=== PATIENT | female | born 1985 | race American Indian/Alaskan Native ===

== ENCOUNTER 2017-03-21 22:47 | Emergency (ER) | payer MEDICAID ==
[2017-03-21 23:00] VITALS: BMI 37.5
[2017-03-22] MEDS ORDERED: cefTRIAXone (Rocephin) 250 mg Inj IM STA (00:15)
--- NOTE | 2017-03-22 00:21 | ED PDOC ---
Arrival/HPI - General Chief Complaint: Female Genitourinary Time Seen by Provider: 03/21/17 23:22 Historian: Patient - History of Present Illness Narrative History of Present Illness (Text): 03/22/17 01:18 31yr old female presents today with vaginal discharge and vaginal irritation that started today. no fever/chills. pt states she is sexually active with one person. no abdominal pain. denies . pt c/o burning with urination and after she wipes. denies vomiting/diarrhea. denies urinary frequency. denies vaginal lesions. pt states she noticed a thick white/yellow discharge today. no other complaints. Time/Duration: Other (1 day) Symptom Onset: Gradual Symptom Course: Unchanged Quality: Burning Severity Level: 2 Past Medical History - Provider Review Nursing Documentation Reviewed: Yes - Travel History Have you recently traveled outside [place] w/in the past 3 mons?: No - Infectious Disease Hx of Infectious Diseases: None - Tetanus Immunization Tetanus Immunization: Up to Date - Gastrointestinal Other/Comment: Cholelithiasis - Psychiatric Hx Substance Use: Yes - Surgical History Other/Comment: gallstone removal - Anesthesia Hx Anesthesia: Yes Hx Anesthesia Reactions: No Hx Malignant Hyperthermia: No Family/Social History - Physician Review Nursing Documentation Reviewed: Yes Family/Social History: Unknown Family HX Smoking Status: Heavy Smoker > 10 Cigarettes Daily Hx Alcohol Use: Yes Frequency of alcohol use: Few days per week Hx Substance Use: Yes Substance used: PCPLinda greene 03/20/2017 Allergies/Home Meds Allergies/Adverse Reactions: Allergies No Known Allergies Allergy (Verified 03/21/17 23:00) Review of Systems - Review of Systems Constitutional: absent: Fatigue, Fevers Respiratory: absent: SOB, Cough Cardiovascular: absent: Chest Pain, Palpitations Gastrointestinal: absent: Abdominal Pain, Nausea, Vomiting Genitourinary Female: Dysuria, Vaginal Discharge. absent: Frequency, Hematuria , Vaginal Bleeding Musculoskeletal: absent: Arthralgias, Back Pain, Neck Pain Skin: Pruritis. absent: Rash Neurological: absent: Headache, Dizziness Psychiatric: absent: Anxiety, Depression Physical Exam Vital Signs Reviewed: Yes Temperature: Afebrile Blood Pressure: Normal Pulse: Regular Respiratory Rate: Normal Appearance: Positive for: Well-Appearing, Non-Toxic, Comfortable Pain Distress: None Mental Status: Positive for: Alert and Oriented X 3 - Systems Exam Head: Present: Atraumatic Mouth: Present: Moist Mucous Membranes Respiratory/Chest: Present: Clear to Auscultation Cardiovascular: Present: Regular Rate and Rhythm Genitourinary/Pelvic Exam: Present: Vaginal Discharge, Other (chaparoned by [facility] P[facility]. ). No: Vaginal Bleeding, Vaginal Lesions, Adenexal Tenderness, Adenexal Mass, Odor Back: Present: Normal Inspection Skin: Present: Warm, Dry Psychiatric: Present: Alert, Oriented x 3 Medical Decision Making ED Course and Treatment: 03/22/17 01:22 31yr old female with vaginal discharge and irritation x 1 day. gc/Chlamydia pending Urinalysis: Trace blood HCG negative Patient wants to be treated for possible STD. Rocephin and Zithromax given We will discharge the patient home with Diflucan 150 mg pt non toxic well appearing; no distress. stable vitals. Patient was advised to follow-up with the retail marketing specialist within the next 2 days. She was advised to follow up regardinggonorrhea and chlamydia cultures. Patient verbalizes understanding of discharge instructions and need for immediate followup. all aspects of this case were discussed the attending of record. impression; vaginal discharge diflucan; 1 tablet ONCe follow up with the primary care physician within the next 2 days Follow up with the DOPE [facility] within the next 2 days return if symptoms worsen,persist or if new symptoms develop. - Lab Interpretations Lab Results: Lab Results 03/22/17 00:14: Urine Color Yellow, Urine Appearance Clear, Urine pH 7.0, Ur Specific [place] 1.025, Urine Protein Negative, Urine Glucose (UA) Negative, Urine Ketones Negative, Urine Blood Trace-lysed H, Urine Nitrate Negative, Urine Bilirubin Negative, Urine Urobilinogen 0.2, Ur Leukocyte Esterase Negative , Urine RBC 1 - 3, Urine WBC 1 - 3, Ur Epithelial Cells 0 - 2, Urine Bacteria Rare - Medication Orders Current Medication Orders: Discontinued Medications Azithromycin (Zithromax) 1,000 mg PO STAT STA PRN Reason: Protocol Stop: 03/22/17 00:16 Last Admin: 03/22/17 00:22 Dose: 1,000 MG Ceftriaxone Sodium (Rocephin) 250 mg IM STAT STA PRN Reason: Protocol Stop: 03/22/17 00:16 Last Admin: 03/22/17 00:22 Dose: 250 MG IM Administration Charges Document 03/22/17 00:22 EKEOO (Rec: 03/22/17 00:22 EKEOO [id number]) Injection Site MAR Injection Site Left Deltoid Charges for Administration # of IM Administrations 1 Lidocaine HCl (Lidocaine 1% (20ml)) Confirm Administered Dose 20 ml .ROUTE .STK- MED ONE Stop: 03/22/17 00:30 Disposition/Present on Arrival - Present on Arrival Any Indicators Present on Arrival: No History of DVT/PE: No History of Uncontrolled Diabetes: No Urinary Catheter: No History of Decub. Ulcer: No History Surgical Site Infection Following: None - Disposition Have Diagnosis and Disposition been Completed?: Yes Diagnosis: Vaginal discharge Disposition: HOME/ ROUTINE Disposition Time: 00:18 Patient Plan: Discharge Patient Problems: Current Active Problems Problem Status Diagnosed Vaginal discharge Acute Condition: GOOD Discharge Instructions (ExitCare): Vaginal Discharge (ED) Additional Instructions: diflucan; 1 tablet ONCe follow up with the primary care physician within the next 2 days Follow up with the DOPE SPR[facility]ER within the next 2 days return if symptoms worsen,persist or if new symptoms develop. Prescriptions: Fluconazole [Diflucan] 150 mg PO ONCE #1 tab Referrals: Kamilah Walsh MD [Staff Provider] - Follow up with primary [facility] [place] [Outside] - Follow up with [facility] [Outside] - Follow up with primary Forms: WORK NOTE
[2017-03-22 00:24] LABS: URINE BILIRUBIN NEGATIVE (NEGATIVE); URINE BLOOD TRACE-LYSED (NEGATIVE); URINE GLUCOSE (UA) NEGATIVE (NEGATIVE); URINE KETONE NEGATIVE (NEGATIVE); URINE LEUKOCYTE ESTERASE NEGATIVE Leu/uL (NEGATIVE); URINE PROTEIN NEGATIVE mg/dL (<30 mg/dL); URINE UROBILINOGEN 0.2 E.U./dL (<1 E.U./dL)
[2017-03-22] MEDS ORDERED: Lidocaine 1% Inj (20ml) ONE (00:29)
[2017-03-22 00:33] LABS: URINE APPEARANCE CLEAR (CLEAR)
[2017-03-22 00:34] LABS: URINE COLOR YELLOW (YELLOW)
[2017-03-22 00:37] LABS: URINE BACTERIA RARE (NEG); URINE EPITHELIAL CELLS 0 - 2 /hpf (0-5)
[2017-03-22 01:31] VITALS: RESP 18; TEMP 98.6; O2SAT 98
[2017-03-22 01:32] VITALS: BP 110/78; PULSE 78
== END 2017-03-22 02:16 | disposition home or self-care (01) ==
LOC: ED 22:47 → MERGE 22:47 → ED 03-22 02:16
DX: N89.8 Other specified noninflammatory disorders of vagina (principal)
CPT/HCPCS: 81001; 87491; 87591; 96372; 99283; J0696

== ENCOUNTER 2017-03-22 10:08 | Emergency (ER) | payer MEDICAID ==
[2017-03-22 10:08] VITALS: BMI 37.5
[2017-03-22 10:14] VITALS: TEMP 98.4
[2017-03-22] MEDS ORDERED: Sodium Chloride 0.9% 1,000 ML IV STA (10:29)
--- NOTE | 2017-03-22 10:30 | ED PDOC ---
Arrival/HPI - General Historian: Patient - General Chief Complaint: Abdominal Pain Time Seen by Provider: 03/22/17 10:23 - History of Present Illness Narrative History of Present Illness (Text): 03/22/17 10:28 31yo female present in ED for complaint of vaginal pain and greenish vaginal discharge. Patient was seen here last night and treated for same complaint. States she is still having vaginal pain. Also reports 3episodes of diarrhea since last night. She denies abdominal pain, urinary symptoms, nausea, vomiting , constipation, fever, chills, any other complaint. 0 (Ozzie,Happiness A) Past Medical History - Infectious Disease Hx of Infectious Diseases: None - Tetanus Immunization Tetanus Immunization: Up to Date - Cardiac Hx Cardiac Disorders: No - Pulmonary Hx Respiratory Disorders: No - Neurological Hx Neurological Disorder: No - HEENT Hx HEENT Disorder: No - Renal Hx Renal Disorder: No - Endocrine/Metabolic Hx Endocrine Disorders: No - Hematological/Oncological Hx Blood Disorders: No - Integumentary Hx Dermatological Disorder: No - Musculoskeletal/Rheumatological Hx Musculoskeletal Disorders: No - Gastrointestinal Hx Gastrointestinal Disorders: Yes Other/Comment: Cholelithiasis - Genitourinary/Gynecological Hx Genitourinary Disorders: No - Psychiatric Hx Psychophysiologic Disorder: No Hx Substance Use: Yes - Surgical History Other/Comment: gallstone removal - Anesthesia Hx Anesthesia: Yes Hx Anesthesia Reactions: No Hx Malignant Hyperthermia: No Family/Social History - Physician Review Nursing Documentation Reviewed: Yes Family/Social History: Unknown Family HX Smoking Status: Heavy Smoker > 10 Cigarettes Daily Hx Alcohol Use: Yes Hx Substance Use: Yes Substance used: PCP- Allergies/Home Meds Allergies/Adverse Reactions: Allergies Penicillins Allergy (Verified 03/22/17 10:11) ANAPHYLAXIS Home Medications: Home Meds Medication Instructions Recorded Confirmed No Known Home Med 03/22/17 03/22/17 Review of Systems - Physician Review All systems were reviewed & negative as marked: Yes - Review of Systems Constitutional: Normal Eyes: Normal ENT: Normal Respiratory: Normal Cardiovascular: Normal Gastrointestinal: Diarrhea. absent: Abdominal Pain, Constipation, Nausea, Vomiting, Hematochezia, Hematemesis, Anorexia Genitourinary Female: Other (Vaginal pain) Musculoskeletal: Normal Skin: Normal Neurological: Normal Endocrine: Normal Hemo/Lymphatic: Normal Psychiatric: Normal Physical Exam Vital Signs Reviewed: Yes Temperature: Afebrile Blood Pressure: Normal Pulse: Regular Respiratory Rate: Normal Appearance: Positive for: Well-Appearing, Non-Toxic, Comfortable Pain Distress: None Mental Status: Positive for: Alert and Oriented X 3 - Systems Exam Head: Present: Atraumatic, Normocephalic Pupils: Present: PERRL Extroacular Muscles: Present: EOMI Conjunctiva: Present: Normal Mouth: Present: Moist Mucous Membranes Neck: Present: Normal Range of Motion Respiratory/Chest: Present: Clear to Auscultation, Good Air Exchange. No: Respiratory Distress, Accessory Muscle Use Cardiovascular: Present: Regular Rate and Rhythm, Normal S1, S2. No: Murmurs Abdomen: Present: Normal Bowel Sounds, Other (Soft). No: Tenderness, Distention , Peritoneal Signs, Rebound, Guarding, McBurney's Point Tender, Rovsing's Sign Present Back: Present: Normal Inspection Upper Extremity: Present: Normal Inspection. No: Cyanosis, Edema Lower Extremity: Present: Normal Inspection. No: Edema Neurological: Present: GCS=15, CN II-XII Intact, Speech Normal Skin: Present: Warm, Dry, Normal Color. No: Rashes Psychiatric: Present: Alert, Oriented x 3, Normal Insight, Normal Concentration Vital Signs Temp Pulse Resp BP Pulse Ox 03/22/17 11:45 86 18 135/71 100 03/22/17 10:11 98.4 F 16 Medical Decision Making ED Course and Treatment: 03/22/17 11:03 I was available for consultation during PA evaluation. The chart was reviewed by me, and I agree with disposition. The documented history was done by the physician steel layout worker. The documented physical exam was done by the physician steel layout worker. The documented procedures were done by the physician steel layout worker. ( Brandon Vega) 03/22/17 16:58 PT presented in ED for stated history. She was comfortable in ED. No diarrhea ws noted in ED. She was hydrated. Lab was unremarkable. DC home. Referred to her PMD. TRT ED for any new or worsening symptoms (Susan Horne) - Lab Interpretations Lab Results: 03/22/17 11:20 03/22/17 11:20 Lab Results 03/22/17 11:20: WBC 6.7, RBC 4.38, Hgb 11.6 L, Hct 35.5 L, MCV 81.1, MCH 26.5, MCHC 32.7, RDW 15.6 H, Plt Count 321, MPV 8.7, Gran % 63.8, Lymph % (Auto) 26.8 , [place] % (Auto) 8.4 H, Eos % (Auto) 0.7 L, Baso % (Auto) 0.3, Gran # 4.27, Lymph # 1.8, [place] # 0.6, Eos # 0.1, Baso # 0.02, PT 10.7, INR 0.99, APTT 25.2, Sodium 139, Potassium 3.9, Chloride 104, Carbon Dioxide 26, Anion Gap 13, BUN 8 , Creatinine 0.6, Est GFR ( Amer) > 60, Est GFR (Non-Af Amer) > 60, Random Glucose 112 H, Calcium 9.5, Total Bilirubin 0.6, AST 22, ALT 24, Alkaline Phosphatase 116, Total Protein 7.8, Albumin 4.2, Globulin 3.7, Albumin/ Globulin Ratio 1.1, Lipase 41 03/22/17 11:00: Urine Color Yellow, Urine Appearance Sl cloudy, Urine pH 7.0, Ur Specific [place] 1.025, Urine Protein Trace H, Urine Glucose (UA) Negative, Urine Ketones Negative, Urine Blood Small H, Urine Nitrate Negative, Urine Bilirubin Negative, Urine Urobilinogen 0.2, Ur Leukocyte Esterase Trace H, Urine RBC 0 - 2, Urine WBC 0 - 2, Ur Epithelial Cells 3 - 4, Urine Bacteria Few - Medication Orders Current Medication Orders: Discontinued Medications Sodium Chloride (Sodium Chloride 0.9%) 1,000 mls @ 1,000 mls/hr IV .Q1H STA Stop: 03/22/17 11:28 Last Admin: 03/22/17 11:22 Dose: 1,000 MLS/HR eMAR Start Stop Document 03/22/17 11:22 EQ (Rec: 03/22/17 11:23 EQ [id number] Intravenous Solution Start Date 03/22/17 Start Time 11:23 Ketorolac Tromethamine (Toradol) 30 mg IVP STAT STA Stop: 03/22/17 10:30 Last Admin: 03/22/17 11:23 Dose: 30 MG IVP Administration Document 03/22/17 11:23 EQ (Rec: 03/22/17 11:23 EQ [email or web address] Charges for Administration # of IVP Administrations 1 Disposition/Present on Arrival - Present on Arrival Any Indicators Present on Arrival: No History of DVT/PE: No History of Uncontrolled Diabetes: No Urinary Catheter: No History of Decub. Ulcer: No History Surgical Site Infection Following: None - Disposition Have Diagnosis and Disposition been Completed?: Yes Disposition Time: 11:50 Patient Plan: Discharge - Disposition Diagnosis: Diarrhea, Vaginal discharge Disposition: HOME/ ROUTINE Condition: STABLE Discharge Instructions (ExitCare): Acute Diarrhea (ED) Additional Instructions: Follow up with your Doctor Return to ED for any new or worsening symptoms Referrals: James Bray MD [Primary Care Provider] - Follow up with primary
[2017-03-22 11:27] LABS: ADD MANUAL DIFF? NO
[2017-03-22 11:30] LABS: BASO # 0.02 K/mm3 (0.0-2.0); BASO % 0.3 % (0.0-3.0); EOS # 0.1 (0.0-0.7); EOS % 0.7 % (1.5-5.0); GRAN # 4.27 (1.4-6.5); GRAN % 63.8 % (50.0-68.0); HEMATOCRIT 35.5 % (36.0-48.0); LYMPH # 1.8 (1.2-3.4); LYMPH % 26.8 % (22.0-35.0); MEAN CELL VOLUME 81.1 fL (80.0-105.0); MEAN CORPUSCULAR HEMOGLOBIN 26.5 pg (25.0-35.0); MEAN CORPUSCULAR HGB CONC 32.7 g/dl (31.0-37.0); MEAN PLATELET VOLUME 8.7 fl (7.0-11.0); MONO # 0.6 (0.1-0.6); MONO % 8.4 % (1.0-6.0); PLATELET COUNT 321 10^3/uL (120.0-450.0); RED CELL DISTRIBUTION WIDTH 15.6 % (11.5-14.5); WHITE BLOOD COUNT 6.7 10^3/ul (4.5-11.0)
[2017-03-22 11:31] LABS: URINE APPEARANCE SL CLOUDY (CLEAR); URINE BILIRUBIN NEGATIVE (NEGATIVE); URINE BLOOD SMALL (NEGATIVE); URINE COLOR YELLOW (YELLOW); URINE GLUCOSE (UA) NEGATIVE (NEGATIVE); URINE KETONE NEGATIVE (NEGATIVE); URINE LEUKOCYTE ESTERASE TRACE Leu/uL (NEGATIVE); URINE PROTEIN TRACE mg/dL (<30 mg/dL); URINE UROBILINOGEN 0.2 E.U./dL (<1 E.U./dL)
[2017-03-22 11:40] LABS: INR 0.99 (0.93-1.08); PARTIAL THROMBOPLASTIN TIME 25.2 Seconds (23.7-30.8)
[2017-03-22 11:42] LABS: URINE BACTERIA FEW (NEG); URINE RBC 0 - 2 /hpf (0-2); URINE WBC 0 - 2 /hpf (0-6)
[2017-03-22 11:46] VITALS: BP 135/71; PULSE 86; RESP 18; O2SAT 100
[2017-03-22 11:54] LABS: ALB/GLOB RATIO 1.1 (1.1-1.8); ALKALINE PHOSPHATASE 116 U/L (38-133); ALT/SGPT 24 U/L (7-56); AST/SGOT 22 U/L (15-39); BILIRUBIN,TOTAL 0.6 mg/dL (0.2-1.3); BLOOD UREA NITROGEN 8 mg/dL (7-21); CALCIUM 9.5 mg/dL (8.4-10.5); CARBON DIOXIDE 26 mmol/L (21-33); CHLORIDE 104 mmol/L (95-110); GFR AFRICAN-AMERICAN > 60; GLUCOSE,RANDOM 112 mg/dL (70-110); LIPASE 41 U/L (23-300); POTASSIUM 3.9 mmol/L (3.6-5.0); SODIUM 139 mmol/L (132-148); TOTAL PROTEIN 7.8 g/dL (5.8-8.3)
== END 2017-03-22 12:00 | disposition home or self-care (01) ==
LOC: ED 10:08
DX: N89.8 Other specified noninflammatory disorders of vagina (principal); R19.7 Diarrhea, unspecified
CPT/HCPCS: 80053; 81001; 83690; 85025; 85610; 85730; 87086; 96374; 99283; J1885; J7040

== ENCOUNTER 2017-03-25 22:17 | Inpatient (IN) | payer MEDICAID ==
--- NOTE | 2017-03-25 22:28 | ED PDOC ---
Arrival/HPI - General Time Seen by Provider: 03/25/17 22:20 Historian: Patient - History of Present Illness Narrative History of Present Illness (Text): 03/25/17 22:26 31 y/o female, pmh including bronchitis, psychiatric history including bipolar and depression, penicillin allergy, c/o suicidal and depression x 3 days. Pt. stated that she has been feeling very depressed, been suicidal for the past 3 days with plan of cutting the wrist which she had before, no homicidal ideation , no environmental auditor or visual hallucination, no night sweat, no other medical or psychological complaints. Past Medical History - Provider Review Nursing Documentation Reviewed: Yes - Infectious Disease Hx of Infectious Diseases: None - Tetanus Immunization Tetanus Immunization: Up to Date - Cardiac Hx Cardiac Disorders: No Hx Hypertension: No - Pulmonary Hx Tuberculosis: No - Neurological HX Cerebrovascular Accident: No Hx Seizures: No - HEENT Hx HEENT Disorder: No - Renal Hx Renal Disorder: No - Endocrine/Metabolic Hx Endocrine Disorders: No - Hematological/Oncological Hx Cancer: No - Integumentary Hx Dermatological Disorder: No - Musculoskeletal/Rheumatological Hx Musculoskeletal Disorders: No - Gastrointestinal Hx Gastrointestinal Disorders: Yes Other/Comment: Cholelithiasis - Genitourinary/Gynecological Hx Sexually Transmitted Diseases: No - Psychiatric Hx Substance Use: Yes - Surgical History Other/Comment: gallstone removal - Anesthesia Hx Anesthesia: Yes Hx Anesthesia Reactions: No Hx Malignant Hyperthermia: No Family/Social History - Physician Review Nursing Documentation Reviewed: Yes Family/Social History: Unknown Family HX Smoking Status: Heavy Smoker > 10 Cigarettes Daily Hx Alcohol Use: Yes Hx Substance Use: Yes Substance used: PCP- Allergies/Home Meds Allergies/Adverse Reactions: Allergies Penicillins Allergy (Mild, Verified 03/25/17 01:27) ANAPHYLAXIS Review of Systems - Review of Systems Constitutional: absent: Fatigue, Fevers Eyes: absent: Vision Changes ENT: absent: Hearing Changes Respiratory: absent: Cough, Sputum Cardiovascular: absent: Chest Pain Gastrointestinal: absent: Abdominal Pain, Nausea, Vomiting Neurological: absent: Headache, Dizziness, Focal Weakness, Gait Changes Endocrine: absent: Diaphoresis Psychiatric: Depression, Suicidal Ideation. absent: Anxiety Physical Exam Vital Signs Temp Pulse Resp BP Pulse Ox 03/26/17 00:23 82 18 110/65 96 03/25/17 22:17 98.6 F 86 18 115/81 98 Pain Distress: None Mental Status: Positive for: Alert and Oriented X 3 - Systems Exam Head: Present: Atraumatic, Normocephalic Pupils: Present: PERRL Extroacular Muscles: Present: EOMI Conjunctiva: Present: Normal Mouth: Present: Moist Mucous Membranes Neck: Present: Normal Range of Motion Respiratory/Chest: Present: Clear to Auscultation, Good Air Exchange. No: Respiratory Distress, Accessory Muscle Use Cardiovascular: Present: Regular Rate and Rhythm, Normal S1, S2. No: Murmurs Abdomen: Present: Normal Bowel Sounds. No: Tenderness, Distention, Peritoneal Signs Back: Present: Normal Inspection Upper Extremity: Present: Normal Inspection. No: Cyanosis, Edema Lower Extremity: Present: Normal Inspection. No: Edema Neurological: Present: GCS=15, CN II-XII Intact, Speech Normal Skin: Present: Warm, Dry, Normal Color. No: Rashes Psychiatric: Present: Alert, Oriented x 3, Normal Insight, Normal Concentration , Depressed Mood, Suicidal Ideation Medical Decision Making ED Course and Treatment: 03/25/17 22:28 -labs/ua/uds -ekg and chest x-ray -One on One -[facility] contacted and will come to evaluate the patient. -Observe and reassess 03/26/17 00:00 -EKG: NSR @ 89 BPM, no ST elevation or depression, no T wave inversion. -Chest x-ray show no active disease -Labs are nonsignificant except K+ 3.4 which potassium chloride 20meq po ordered. -UA show no UTI -Urine drug screen show +PCP. -Pt. is medically clear and stable for the psychiatric evaluation and admission. -Pt. evaluated by the MURIEL Zhong which the patient agreed to be admitted under Dr. Antonia Chávez service. Dr. Link awared and will put in the admission order. - Lab Interpretations Lab Results: 03/25/17 22:48 03/25/17 22:48 Lab Results 03/26/17 00:01: Urine Color Yellow, Urine Appearance Cloudy, Urine pH 6.0, Ur Specific [place] >= 1.030, Urine Protein 30 H, Urine Glucose (UA) Negative, Urine Ketones Negative, Urine Blood Trace-intact H, Urine Nitrate Negative, Urine Bilirubin Negative, Urine Urobilinogen 0.2, Ur Leukocyte Esterase Negative , Urine RBC 2 - 5, Urine WBC 0 - 2, Ur Epithelial Cells 3 - 4, Amorphous Sediment Many 03/25/17 23:00: Urine Opiates Screen Negative, Urine Methadone Screen Negative, Ur Barbiturates Screen Negative, Ur Phencyclidine Scrn Positive H, Ur Amphetamines Screen Negative, U Benzodiazepines Scrn Negative, U Oth Cocaine Metabols Negative, U Cannabinoids Screen Negative 03/25/17 22:48: Alcohol, Quantitative < 10 03/25/17 22:48: Salicylates < 1 L, Acetaminophen < 10.0 L 03/25/17 22:48: Sodium 138, Potassium 3.4 L, Chloride 103, Carbon Dioxide 25, Anion Gap 13, BUN 14, Creatinine 0.7, Est GFR ( Amer) > 60, Est GFR (Non- Af Amer) > 60, Random Glucose 111 H, Calcium 9.2, Total Bilirubin 0.4, AST 24, ALT 31, Alkaline Phosphatase 98, Total Protein 7.9, Albumin 4.3, Globulin 3.6, Albumin/Globulin Ratio 1.2 03/25/17 22:48: WBC 8.6 D, RBC 4.39, Hgb 11.7 L, Hct 35.5 L, MCV 80.9, MCH 26.7 , MCHC 33.0, RDW 15.4 H, Plt Count 324, MPV 8.6, Gran % 55.3, Lymph % (Auto) 35.7 H, [place] % (Auto) 7.4 H, Eos % (Auto) 1.4 L, Baso % (Auto) 0.2, Gran # 4.76 , Lymph # 3.1, [place] # 0.6, Eos # 0.1, Baso # 0.02 I have reviewed the lab results: Yes Interpretation: Abnormal lab values (K+3.4) - RAD Interpretation Radiology Orders: 03/25/17 22:29 CHEST PORTABLE [RAD] Stat Institutional Research Director: Radiologist - EKG Interpretation EKG Interpretation (Text): 03/25/17 23:33 NSR @ 89 BPM, no ST elevation or depression, no T wave inversion. Interpreted by ED Physician: Yes Type: 12 lead EKG Comparison: Com.w/previous EKG - Medication Orders Current Medication Orders: Discontinued Medications Potassium Chloride (K-Dur 20 Meq Er Tab) 20 meq PO STAT STA Stop: 03/26/17 00:00 - PA / PHARMACY CLINICAL COORDINATOR / Resident Statement MD/DO has reviewed & agrees with the documentation as recorded. Disposition/Present on Arrival - Present on Arrival Any Indicators Present on Arrival: No History of DVT/PE: No History of Uncontrolled Diabetes: No Urinary Catheter: No History of Decub. Ulcer: No History Surgical Site Infection Following: None - Disposition Have Diagnosis and Disposition been Completed?: Yes Diagnosis: Major depression, Suicidal ideation Disposition: HOSPITALIZED Disposition Time: 00:02 Patient Plan: Admission Patient Problems: Current Active Problems Problem Status Onset Major depression Acute Suicidal ideation Acute Condition: GOOD Referrals: James Bray MD [Primary Care Provider] - Follow up with primary
[2017-03-25 22:31] VITALS: BMI 45.4
[2017-03-25 22:52] LABS: ADD MANUAL DIFF? NO
[2017-03-25 22:57] LABS: BASO # 0.02 K/mm3 (0.0-2.0); BASO % 0.2 % (0.0-3.0); EOS # 0.1 (0.0-0.7); EOS % 1.4 % (1.5-5.0); GRAN # 4.76 (1.4-6.5); GRAN % 55.3 % (50.0-68.0); HEMATOCRIT 35.5 % (36.0-48.0); LYMPH # 3.1 (1.2-3.4); LYMPH % 35.7 % (22.0-35.0); MEAN CELL VOLUME 80.9 fL (80.0-105.0); MEAN CORPUSCULAR HEMOGLOBIN 26.7 pg (25.0-35.0); MEAN PLATELET VOLUME 8.6 fl (7.0-11.0); MONO # 0.6 (0.1-0.6); MONO % 7.4 % (1.0-6.0); PLATELET COUNT 324 10^3/uL (120.0-450.0); RED CELL DISTRIBUTION WIDTH 15.4 % (11.5-14.5); WHITE BLOOD COUNT 8.6 10^3/ul (4.5-11.0)
[2017-03-25 23:06] LABS: ALB/GLOB RATIO 1.2 (1.1-1.8); ALKALINE PHOSPHATASE 98 U/L (38-133); ALT/SGPT 31 U/L (7-56); AST/SGOT 24 U/L (15-39); BILIRUBIN,TOTAL 0.4 mg/dL (0.2-1.3); BLOOD UREA NITROGEN 14 mg/dL (7-21); CALCIUM 9.2 mg/dL (8.4-10.5); CARBON DIOXIDE 25 mmol/L (21-33); CHLORIDE 103 mmol/L (98-107); GFR AFRICAN-AMERICAN > 60; GLUCOSE,RANDOM 111 mg/dL (70-110); POTASSIUM 3.4 mmol/L (3.6-5.0); SODIUM 138 mmol/L (132-148); TOTAL PROTEIN 7.9 g/dL (5.8-8.3)
[2017-03-25] MEDS ORDERED: Potassium Chloride 20 mEq ER Tab PO STA (23:59)
[2017-03-26 00:23] LABS: URINE BILIRUBIN NEGATIVE (NEGATIVE); URINE BLOOD TRACE-INTACT (NEGATIVE); URINE GLUCOSE (UA) NEGATIVE (NEGATIVE); URINE KETONE NEGATIVE (NEGATIVE); URINE LEUKOCYTE ESTERASE NEGATIVE Leu/uL (NEGATIVE); URINE PROTEIN 30 mg/dL (<30 mg/dL); URINE UROBILINOGEN 0.2 E.U./dL (<1 E.U./dL)
[2017-03-26 00:24] VITALS: O2SAT 96
[2017-03-26 00:31] LABS: URINE AMORPHOUS SEDIMENT MANY; URINE APPEARANCE CLOUDY (CLEAR); URINE COLOR YELLOW (YELLOW); URINE WBC 0 - 2 /hpf (0-6)
--- NOTE | 2017-03-26 07:34 | RAD ---
HISTORY: medical clearance COMPARISON: None available TECHNIQUE: Chest, one view. FINDINGS: LUNGS: No focal consolidation. Please note that chest x-ray has limited sensitivity for the detection of pulmonary masses. PLEURA: No significant pleural effusion identified. No definite pneumothorax . CARDIOVASCULAR: The cardiomediastinal silhouette appears within normal limits of size. OSSEOUS STRUCTURES: No acute osseous abnormality identified. VISUALIZED UPPER ABDOMEN: Unremarkable. OTHER FINDINGS: None. IMPRESSION: No focal consolidation, significant pleural effusion, or definite pneumothorax identified.
[2017-03-26 08:05] LABS: CHOLESTEROL 198 mg/dL (130-200)
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
--- NOTE | 2017-03-26 11:28 | CARD ---
APPROVED REPORT EKG Measurement Heart [id number] <Conclusion> Normal sinus rhythm High Voltage Can Be Normal for Young Age.
[2017-03-26] MEDS ORDERED: TDAP Vaccine 0.5 mL Syr IM ONE (14:27)
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
[2017-03-26] MEDS: Bacitracin Ointment 30 GM TUBE TOP SCH (17:04)
[2017-03-26] MEDS: Hydrocortisone 2.5% Rectal Cream(30 gm) PR SCH (18:52)
[2017-03-27] MEDS: Bacitracin Ointment 30 GM TUBE TOP SCH ×2 (08:28→15:21)
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
[2017-03-27] MEDS ORDERED: Magnesium Hydroxide Susp 30 ml UD PO PRN (11:29)
[2017-03-27] MEDS ORDERED: Alum-Mag Hydrox-Simethicone Susp (30 mL) PO PRN (11:29)
[2017-03-27] MEDS: Hydrocortisone 2.5% Rectal Cream(30 gm) PR SCH (19:18)
[2017-03-28 07:30] VITALS: TEMP 98.2
--- NOTE | 2017-03-28 08:32 | PCM.PYCHPN ---
Psychiatric Progress Note - Psychiatric Progress Note Patient seen today, length of contact: 25 min Patient Chief Complaint: "good, better, the medications are calming me down" Problems Identified/Issues Discussed: I reviewed recent notes and met with patient at bedside. Presently she is calm and superficially cooperative. She denies any new concerns and reports feeling "good, better, the medications are calming me down". She denies having any hallucinations and delusions were not elicited during this initial meeting. Responses are brief and relevant to questioning. Her affect remains mildly irritable and labile but a little calmer compared to reports from Wednesday. Since then, there was a minor incident in which she yelled and cursed at staff yesterday when she was reminded about the phone time limit. She was given Ativan 2 mg and was able to calm down. There have been no further incidences thus far however her impulse control remains poor and unpredictable Diagnostic Results: r/o bipolar disorder r/o schizoaffective r/o substance induced psychosis stimulant use disorder r/o impulse control disorder r/o neurocognitive d/o Medication Change: No Medical Record Reviewed: Yes (reports, notes, labs, vitals) Mental Status Examination - Cognitive Function Orientation: Person, Place, Situation Attention: WNL Concentration: Poor Association: Loose - Mood Mood: Depressed ("good better, the medications are calming me down"), Other ( irritabel and angry) - Affect Affect: Other (labile) - Speech Speech: Appropriate - Formal Thought Process Formal Thought Process: No Impairment, Other (but in ED pt reported to have auditory hallucinations) - Suicidal Ideation Suicidal Ideation: No - Homicidal Ideation Homicidal Ideation: No Goal/Treatment Plan - Goal/Treatment Plan Progress Toward Problem(s) and Goals/Treatment Plan: * c/w current tx and plan * No new weekend labs * Vitals reviewed and noted below: Selected Entries 03/27/17 03/27/17 06:23 16:31 Temperature 97.8 F Pulse Rate 71 79 Respiratory 20 Rate Blood Pressure 101/55 L 124/82 * ~Administrative discharge vs screening if patient has further outburts
[2017-03-28] MEDS: Hydrocortisone 2.5% Rectal Cream(30 gm) PR SCH ×2 (09:07→18:12)
[2017-03-28] MEDS: Bacitracin Ointment 30 GM TUBE TOP SCH ×2 (09:23→18:14)
[2017-03-29 06:48] VITALS: BP 130/48; PULSE 77; RESP 20
[2017-03-29] MEDS: Hydrocortisone 2.5% Rectal Cream(30 gm) PR SCH (09:36)
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
== END 2017-03-29 11:07 | disposition home or self-care (01) | DRG 747 ==
LOC: ED 22:17 → ERH 03-26 00:03 → PSYC 03-26 02:13
PROVIDERS: ADMIT Psychiatry & Neurology Psychiatry; ATTEND Psychiatry & Neurology Psychiatry
DX: F19.24 Other psychoactive substance dependence with psychoactive substance-induced mood disorder (principal); F25.9 Schizoaffective disorder, unspecified; R45.851 Suicidal ideations; F60.2 Antisocial personality disorder; F31.9 Bipolar disorder, unspecified; I48.91 Unspecified atrial fibrillation; I34.1 Nonrheumatic mitral (valve) prolapse; I73.9 Peripheral vascular disease, unspecified; Y04.0XXA Assault by unarmed brawl or fight, initial encounter; Z91.410 Personal history of adult physical and sexual abuse; Z95.0 Presence of cardiac pacemaker; Z88.0 Allergy status to penicillin; I25.2 Old myocardial infarction; F17.210 Nicotine dependence, cigarettes, uncomplicated; E66.9 Obesity, unspecified; E78.00 Pure hypercholesterolemia, unspecified; Z87.892 Personal history of anaphylaxis; J40 Bronchitis, not specified as acute or chronic; R01.1 Cardiac murmur, unspecified; S00.31XA Abrasion of nose, initial encounter; F63.9 Impulse disorder, unspecified; Z68.36 Body mass index [BMI] 36.0-36.9, adult; Y92.239 Unspecified place in hospital as the place of occurrence of the external cause